=== PATIENT | male | born 1995 | race Two or more races ===

== ENCOUNTER 2016-06-30 05:40 | Inpatient (IN) | payer MEDICAID ==
[~2016-06-30] VITALS: Ht 172.7 cm; Wt 105.7 kg
[2016-06-30 06:21] LABS: DEFINITIVE VIEW TRANSMISSION; Hematocrit 49.2 % (41.0-53.0); Hemoglobin 16.9 g/dL (13.5-17.5); Mean Corpuscular Hemoglobin 30.9 pg (28.0-32.0); Mean Corpuscular Hgb Conc. 34.4 g/dL (32.0-36.0); Mean Corpuscular Volume 89.8 fL (80.0-100.0); Mean Platelet Volume 8.5 fL (7.4-10.4); Platelet Count (auto) 279 10^3/uL (140-450); Red Cell Distribution Width 12.3 % (11.6-16.0); SUSPECT VIEW TRANSMISSION; White Blood Cell 23.1 10^3/uL (4.4-10.8)
[2016-06-30 06:28] LABS: Metamyelocytes % 0; Myelocytes % 0; Promyelocytes % 0; Reactive Lymphocytes 0
[2016-06-30 06:39] LABS: INR 1.1 (0.9-1.15); Partial Thromboplastin Time 26.4 sec (22.64-33.71); Prothrombin Time 11.3 sec (9.37-12.3)
[2016-06-30] MEDS ORDERED: MORPHINE SULFATE 4 MG/ML SYRG IV ONE (07:00)
[2016-06-30] MEDS ORDERED: cefTRIAXone 1GM/50ML D5W 50 ML IV ONE (07:00)
[2016-06-30] MEDS ORDERED: metroNIDAZOLE 500MG/100ML 100 ML IV ONE (07:00)
[2016-06-30] MEDS ORDERED: SODIUM CHLORIDE 0.9% 1,000 ML IV ONE (07:00)
[2016-06-30] MEDS ORDERED: ONDANSETRON HCL 4 MG/2 ML VIAL IV ONE ×2 (07:00→14:15)
[2016-06-30 07:05] LABS: Albumin 4.3 g/dL (3.4-5.0); Calcium 9.3 mg/dL (8.5-10.1); Potassium 3.8 mmol/L (3.5-5.1); Total Protein 7.8 g/dL (6.4-8.2)
[2016-06-30] MEDS ORDERED: PANTOPRAZOLE SODIUM 40 MG/10 ML VIAL IV ONE (07:15)
[2016-06-30 08:04] LABS: Urine Bilirubin Negative (Negative); Urine Blood Negative /uL (Negative); Urine Color Yellow (Yellow); Urine Glucose Normal (Normal); Urine Ketone 1+ (Negative); Urine Nitrite Negative (Negative); Urine Urobilinogen Normal (Negative); Urine pH 6.5 (5.0-8.0)
[2016-06-30 08:06] LABS: Urine RBC 0-1 /hpf (0 - 3)
[2016-06-30 08:07] LABS: Urine Squamous Epithelial Cell None seen /hpf (<5)
[2016-06-30 09:41] LABS: Platelet Estimate Adequate
[2016-06-30] MEDS ORDERED: cefTRIAXone SOD 1,000 MG VL ONE (12:46)
[2016-06-30] MEDS ORDERED: MEPERIDINE HCL (50 MG/ML) 1 ML VIAL ONE ×2 (12:58→13:48)
[2016-06-30] MEDS ORDERED: fentaNYL CITRATE 100 MCG/2 ML VL ONE (12:58)
[2016-06-30] MEDS ORDERED: MIDAZOLAM HCL 1MG/1ML-2 ML VIAL ONE (12:58)
[2016-06-30] MEDS ORDERED: DEXAMETHASONE SOD PHOS 10MG/1ML VIAL INJ ONE (12:59)
[2016-06-30] MEDS ORDERED: PROPOFOL 10 MG/ML 20 ML IV ONE (12:59)
[2016-06-30] MEDS ORDERED: SUCCINYLCHOLINE CHLORIDE 20 MG/ML 10ML VIAL IV ONE (13:09)
[2016-06-30] MEDS ORDERED: ROCURONIUM 10MG/ML 10ML VIAL IV ONE (13:23)
[2016-06-30] MEDS ORDERED: KETOROLAC TROMETH 30 MG/ML 1ML VIAL ONE (14:06)
[2016-06-30] MEDS ORDERED: NEOSTIGMINE 1 MG/ML INJ (10mg/10ML VIAL) ONE (14:07)
[2016-06-30] MEDS ORDERED: GLYCOPYRROLATE 0.2 MG/ML 1ML VIAL ONE (14:07)
[2016-06-30] MEDS ORDERED: hydrALAZINE HCL 20 MG/ML VL IV PRN (14:15)
[2016-06-30] MEDS ORDERED: MORPHINE SULF INJ 2 MG/ML SYRINGE 1ML IV PRN ×2 (14:15→16:45)
[2016-06-30] MEDS ORDERED: LABETALOL HCL 5 MG/ML 4ML SYRINGE IV PRN (14:15)
[2016-06-30] MEDS ORDERED: KETOROLAC TROMETH 30 MG/ML 1ML VIAL IV ONE (14:15)
[2016-06-30] MEDS ORDERED: MIDAZOLAM HCL 1MG/1ML-2 ML VIAL IV PRN (14:15)
[2016-06-30] MEDS ORDERED: ePHEDrine SULFATE 50 MG/ML AMP IV PRN (14:15)
[2016-06-30] MEDS ORDERED: BUPIVACAINE 0.25% INJ 50ML VIAL IJ ONE (14:16)
[2016-06-30] MEDS: HYDROmorphone HCL 2 MG/ML VL IV PRN ×2 (15:30→15:40)
[2016-06-30] MEDS ORDERED: LORazepam 2MG/ML-1ML VIAL IV PRN (16:45)
[2016-06-30] MEDS ORDERED: HYDROcodone-ACET 5/325MG TAB PO PRN (16:45)
[2016-06-30 16:52] VITALS: BP 152/77
[2016-06-30 17:00] VITALS: BP 152/77
[2016-06-30] MEDS: SOD CHL 0.9%/ KCL 20MEQ 1,000 ML IV SCH ×2 (17:21→22:09)
[2016-06-30 22:00] VITALS: BP 152/78
[2016-06-30] MEDS: metroNIDAZOLE 500MG/100ML 100 ML IV SCH (22:07)
[2016-06-30] MEDS: FAMOTIDINE 20 MG TAB PO SCH (22:08)
[2016-07-01 05:30] VITALS: BP 126/57
[2016-07-01] MEDS: metroNIDAZOLE 500MG/100ML 100 ML IV SCH ×2 (06:10→12:14)
[2016-07-01 06:27] LABS: Basophils # (auto) 0 uL; Basophils % (auto) 0.3 % (0.0-2.0); Eosinophils # (auto) 0 uL; Hematocrit 41.4 % (41.0-53.0); Hemoglobin 14.1 g/dL (13.5-17.5); Lymphocytes # (auto) 1.8 uL; Lymphocytes % (auto) 11.2 % (10.0-50.0); Mean Corpuscular Hemoglobin 30.9 pg (28.0-32.0); Mean Corpuscular Volume 90.8 fL (80.0-100.0); Mean Platelet Volume 8.6 fL (7.4-10.4); Monocytes # (auto) 1.2 uL; Monocytes % (auto) 7.8 % (0.0-12.0); Neutrophils # (auto) 12.7 uL; Neutrophils % (auto) 80.7 % (37.0-80.0); Platelet Count (auto) 233 10^3/uL (140-450); Red Cell Distribution Width 12.9 % (11.6-16.0); White Blood Cell 15.7 10^3/uL (4.4-10.8)
[2016-07-01 06:55] LABS: BUN/Creatinine Ratio 17.6; Calcium 8.2 mg/dL (8.5-10.1); Potassium 4.5 mmol/L (3.5-5.1)
[2016-07-01 08:00] VITALS: BP 118/62
[2016-07-01] MEDS ORDERED: TRAM50TA2 PO (08:28)
[2016-07-01] MEDS ORDERED: METR500T PO (08:28)
[2016-07-01] MEDS ORDERED: CIPR-173 PO (08:28)
[2016-07-01] MEDS ORDERED: cefTRIAXone 1GM/50ML D5W 50 ML IV SCH (09:00)
[2016-07-01 09:26] VITALS: BP 118/62
[2016-07-01] MEDS: SOD CHL 0.9%/ KCL 20MEQ 1,000 ML IV SCH (10:00)
[2016-07-01] MEDS: FAMOTIDINE 20 MG TAB PO SCH (10:26)
[2016-07-01 13:00] VITALS: BP 132/77
[2016-07-01 14:33] VITALS: BP 118/62
== END 2016-07-01 15:30 | disposition home or self-care (01) | DRG 710 ==
LOC: ER 05:41 → CATH 05:42 → EAST 05:43
PROVIDERS: ADMIT Surgery; ATTEND Internal Medicine
PROC: 0DTJ4ZZ Resection of Appendix, Percutaneous Endoscopic Approach (ICD-10-PCS; principal; 2016-06-30 13:13)
DX: A41.9 Sepsis, unspecified organism (principal); K76.0 Fatty (change of) liver, not elsewhere classified; I10 Essential (primary) hypertension; K35.80 Unspecified acute appendicitis; E66.9 Obesity, unspecified; Z68.34 Body mass index [BMI] 34.0-34.9, adult
CPT/HCPCS: 36415; 74176; 80048; 80053; 81001; 82150; 83690; 85007; 85025; 85027; 85610; 85730; 86850; 86900; 86901; 87040; 96365; 96368; 96375; 99291; C9113; G0434; J0330; J0696; J1100; J1885; J2250; J2405; J2704; J3490